=== PATIENT | male | born 1995 | race Caucasian/White ===

== ENCOUNTER 2023-11-07 21:59 | Emergency (ER) | payer BC ==
[~2023-11-07] VITALS: Ht 172.7 cm; Wt 86.4 kg
[2023-11-07 23:19] LABS: BASOPHILS % (AUTO) 0.5 % (0-1); EOSINOPHILS # (AUTO) 0.4 X10'3 (0-0.9); EOSINOPHILS % (AUTO) 5.7 % (0-6); HEMATOCRIT 43.1 % (42.0-52.0); HEMOGLOBIN 14.7 g/dl (14.0-17.9); LYMPHOCYTES # (AUTO) 2.3 X10'3 (1.1-4.8); MEAN CORPUSCULAR HEMOGLOBIN 29.5 PG (27.0-31.0); MEAN CORPUSCULAR VOLUME 86.7 FL (78-98); MEAN PLATELET VOLUME 8.2 FL (7.4-10.4); MONOCYTES # (AUTO) 0.7 X10'3 (0-0.9); MONOCYTES % (AUTO) 10.1 % (2-12); NEUTROPHILS # (AUTO) 3.5 X10'3 (1.8-7.7); NEUTROPHILS % (AUTO) 50.7 % (42-75); PLATELET COUNT 232 X10'3 (140-440); RED BLOOD COUNT 4.97 X10'6 (4.70-6.10); RED CELL DISTRIBUTION WIDTH 12.5 % (11.5-14.5)
[2023-11-07 23:37] LABS: ALBUMIN 3.7 G/DL (3.4-5.0); ANION GAP 7 (8-16); BLOOD UREA NITROGEN 19 MG/DL (7-18); BUN/CREATININE RATIO 14.7 (10.0-20.0); CALCIUM 8.7 MG/DL (8.5-10.1); CHLORIDE 106 MMOL/L (99-107); CREATININE 1.29 MG/DL (0.60-1.10); GLUCOSE 83 MG/DL (70-104); POTASSIUM 3.7 MMOL/L (3.5-5.1); PRO BRAIN NATRIURETIC PEPTIDE < 30 PG/ML (0-125); SODIUM 143 MMOL/L (135-145); eCRCL 82 ML/MIN; eGFR 66 ML/MIN
[2023-11-08 00:57] VITALS: BP 119/67; PULSE 67; RESP 16; TEMP 98; O2SAT 98
== END 2023-11-08 00:58 | disposition home or self-care (01) ==
LOC: ER 22:00
DX: R07.89 Other chest pain (principal)
CPT/HCPCS: 36415; 71045; 80048; 83880; 84484; 85025; 93005; 99285

== ENCOUNTER 2024-03-03 12:44 | Outpatient (CLI) | payer BC ==
[2024-03-03 13:38] LABS: BASOPHILS % (AUTO) 0.8 % (0-1); EOSINOPHILS # (AUTO) 0.3 X10'3 (0-0.9); EOSINOPHILS % (AUTO) 5.7 % (0-6); HEMATOCRIT 47.3 % (42.0-52.0); HEMOGLOBIN 16.4 g/dl (14.0-17.9); LYMPHOCYTES # (AUTO) 1.8 X10'3 (1.1-4.8); LYMPHOCYTES % (AUTO) 31.6 % (21-51); MEAN CORPUSCULAR HEMOGLOBIN 29.8 PG (27.0-31.0); MEAN CORPUSCULAR HGB CONC 34.6 g/dL (33.0-36.5); MEAN CORPUSCULAR VOLUME 86.2 FL (78-98); MEAN PLATELET VOLUME 8.4 FL (7.4-10.4); MONOCYTES # (AUTO) 0.6 X10'3 (0-0.9); MONOCYTES % (AUTO) 10.2 % (2-12); NEUTROPHILS % (AUTO) 51.7 % (42-75); PLATELET COUNT 251 X10'3 (140-440); RED BLOOD COUNT 5.49 X10'6 (4.70-6.10); RED CELL DISTRIBUTION WIDTH 12.9 % (11.5-14.5); WHITE BLOOD COUNT 5.8 X10'3 (4.5-11.0)
[2024-03-03 13:55] LABS: ALANINE AMINOTRANSFERASE 54 U/L (12-78); ALBUMIN 4.1 G/DL (3.4-5.0); ALBUMIN/GLOBULIN RATIO 1.1 (1.1-1.5); ALKALINE PHOSPHATASE 61 IU/L (46-116); ANION GAP 8 (8-16); ASPARTATE AMINO TRANSFERASE 43 U/L (10-37); BLOOD UREA NITROGEN 18 MG/DL (7-18); BUN/CREATININE RATIO 16.8 (10.0-20.0); CALCIUM 9.1 MG/DL (8.5-10.1); CHLORIDE 103 MMOL/L (99-107); CHOL/HDL RATIO 4.9 (0.00-4.99); CHOLESTEROL 251 MG/DL (0-200); CREATININE 1.07 MG/DL (0.60-1.10); GLUCOSE 85 MG/DL (70-104); HDL CHOLESTEROL 51 MG/DL (35-60); LDL CHOLESTEROL 177 MG/DL (50-100); POTASSIUM 4.5 MMOL/L (3.5-5.1); SODIUM 140 MMOL/L (135-145); TOTAL CARBON DIOXIDE 29.4 MMOL/L (24-32); TOTAL PROTEIN 7.8 G/DL (6.4-8.2); TRIGLYCERIDES 67 MG/DL (20-135); eGFR 82 ML/MIN
[2024-03-03 14:06] LABS: THYROID STIMULATING HORMONE 1.56 ulU/ml (0.34-4.50)
[2024-03-05 13:52] LABS: TESTOSTERONE, SERUM 644 ng/dL (264-916)
== END 2024-03-03 23:59 | disposition home or self-care (01) ==
LOC: LAB 12:44
PROVIDERS: ATTEND Nurse Practitioner
DX: Z13.220 Encounter for screening for lipoid disorders (principal); Z13.29 Encounter for screening for other suspected endocrine disorder; R79.89 Other specified abnormal findings of blood chemistry
CPT/HCPCS: 36415; 80053; 80061; 84402; 84403; 84443; 85025

== ENCOUNTER 2025-04-09 18:38 | Emergency (ER) | payer BC ==
[~2025-04-09] VITALS: Ht 172.7 cm; Wt 64.2 kg
[2025-04-09 19:06] VITALS: BP 118/69; PULSE 66; RESP 15; TEMP 96.8; O2SAT 99
--- NOTE | 2025-04-09 19:21 | Physician Documentation ---
History of Present Illness ~ Chief Complaint: Body Fluid Exposure Stated Complaint: WORK PLACE EXPOSURE Time Seen by MD: 19:17 HPI A 29-year-old male that presents to the emergency department for evaluation of occupational exposure body fluid. 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 He reports his secretions and blood rubs and landed on his face. Tetanus within 5 Years?: Yes Medication Reconciliation Allergies: Coded Allergies: No Known Allergies (Unverified , 04/09/25) Past Medical History Past Medical History: No Pertinent History Review of Systems ROS As stated above in the HPI, otherwise all systems are reviewed and negative. Physical Exam Vital Signs: Temperature: 96.8, Source: Temporal, Heart Rate: 66, Respiratory Rate: 15, BP: 118/69, Pulse Oximetry: 99, Weight: 64.150 Physical Exam VITALS: Reviewed and as above. GENERAL: Alert, no apparent distress. HEENT: Normocephalic, atraumatic, PERRL, EOMI, dry mucosa, no erythema RESPIRATORY: Lungs clear, normal breath sounds, no respiratory distress. CHEST: No accessory muscle use, no retractions CV: Regular rate, rhythm, no edema, no murmur, No: JVD GI: Soft, non-tender, bowels sounds present, no rebound, guarding, or rigidity BACK: No CVA tenderness, or swelling MUSCULOSKELETAL No deformities, no edema SKIN: Warm and dry, no rash NEURO: Oriented x4, No motor or sensory deficit PSYCH: Normal mood and affect, no agitation Progress Results/Orders Results/Orders Vital Signs 04/09/25 19:06 Temp 96.8 Pulse 66 Resp 15 B/P (MAP) 118/69 Pulse Ox 99 Medical Decision Making Findings Evaluation for bodily fluid exposure in place of occupation. Departure Disposition: HOME / SELF CARE / HOMELESS Impression: Primary Impression: Encounter for patient concern about exposure to infectious organism Condition: Stable Referrals: NO PRIMARY CARE PROVIDER (PCP) Education Educated: Patient Educated regarding: diagnosis, treatment, need for follow up Signature Scribe Signature: A Attestation: Scribed for Emergency,Department by ALEX Morales . 04/09/25 19:20 ROSAURA MYLES Apr 09, 2025 19:21
== END 2025-04-09 19:24 | disposition home or self-care (01) ==
LOC: ER 18:39
DX: Z20.828 Contact with and (suspected) exposure to other viral communicable diseases (principal)
CPT/HCPCS: 99282

== ENCOUNTER 2025-04-25 13:01 | Emergency (ER) | payer OTHER ==
[~2025-04-25] VITALS: Ht 172.7 cm; Wt 82.2 kg
[2025-04-25 13:13] VITALS: BP 121/84; PULSE 64; RESP 18; TEMP 97.6; O2SAT 97
--- NOTE | 2025-04-25 13:15 | Physician Documentation ---
History of Present Illness ~ Chief Complaint: Body Fluid Exposure Stated Complaint: BLOOD SPLATTER IN EYE Time Seen by MD: 14:08 [facility] 29 yr old male reports that he was cleaning a bronchoscope today when he had bladder of body fluids into his right eye. He did irrigate the eye copiously. He denies other concerns. Tetanus within 5 Years?: Yes Medication Reconciliation Allergies: Coded Allergies: No Known Allergies (Unverified , 04/09/25) Past Medical History Past Medical History: No Pertinent History Review of Systems ROS As stated above in the HPI, otherwise all systems are reviewed and negative. Physical Exam Physical Exam General: Alert, no apparent distress. HEENT: PERRL, EOMI, no injection, moist mucous membranes. Neck: Full range of motion. Respiratory: Lungs clear, no respiratory distress. Chest: No accessory muscle use. Cardiovascular: Regular rate and rhythm, no murmurs. Gastrointestinal: Soft, nontender, nondistended. Bowels sounds present. Extremities: Normal range of motion, no deformity. Neurologic: Oriented x4. Psychiatric: Normal mood and affect. Skin: Normal color, warm and dry. No edema, no ecchymosis. Progress Results/Orders Results/Orders Orders - ORLANDO VEE NP Hep B Core Ab, Igm (04/25/25 13:15) Hep B Core Ab, Tot (04/25/25 13:15) Completed Orders - ORLANDO VEE NP Hiv Ab 1&2 Rapid Scn (04/25/25 13:15) Vital Signs 04/25/25 13:13 Temp 97.6 Pulse 64 Resp 18 B/P (MAP) 121/84 Pulse Ox 97 O2 Flow Rate 0 Laboratory Tests Test 04/25/25 13:22 HIV (1&2) Antibody Non-reactive Medical Decision Making Differential Dx:Considerations: Include: Abrasion, Body Fluid Exposure, Contusion, Infectious disease expos., Laceration, Puncture wound Departure Time of Disposition: 14:21 Disposition: 01 HOME / SELF CARE / HOMELESS Impression: Primary Impression: Encounter for patient concern about exposure to infectious organism Condition: Stable Discharge Instructions: Body Fluid Exposure Additional Instructions: Coordinate appropriate testing with the nursing distribution warehouse manager. Return to ER with any other concerns. Referrals: NO PRIMARY CARE PROVIDER (PCP) Education Educated: Patient Educated regarding: diagnosis, treatment, prognosis, need for follow up Signature Scribe Signature: x Attestation: The note accurately reflects work and decisions made by me.Orlando Wolfe NP 04/25/25 13:18 ORLANDO VEE NP Apr 25, 2025 13:15
[2025-04-25 14:02] LABS: HIV ANTIBODY 1&2 RAPID NON-REACTIVE (Neg)
[2025-04-27 09:19] LABS: HEP B CORE AB, IGM Negative (Negative); HEP B CORE AB, TOT Negative (Negative)
== END 2025-04-25 15:14 | disposition home or self-care (01) ==
LOC: ER 13:01
DX: Z77.21 Contact with and (suspected) exposure to potentially hazardous body fluids (principal)
CPT/HCPCS: 36415; 86703; 86704; 86705; 99283